=== PATIENT | male | born 1935 | race Caucasian/White ===

== ENCOUNTER → 2017-04-21 | Outpatient (RCR) | payer OTHER | END | disposition home or self-care (01) | LOC: PTY 04-14 09:30 | DX: M25.561 Pain in right knee (principal); M25.562 Pain in left knee; I10 Essential (primary) hypertension | CPT/HCPCS: 97110; 97140; 97162; G0283 ==

== ENCOUNTER → 2017-05-21 | Outpatient (RCR) | payer OTHER | END | disposition home or self-care (01) | LOC: PTY 04-24 08:30 | DX: M25.561 Pain in right knee (principal); M25.562 Pain in left knee | CPT/HCPCS: 97110; 97140; G0283 ==

== ENCOUNTER 2017-06-18 09:15 | Outpatient (RCR) | payer OTHER | END 2017-06-21 | disposition home or self-care (01) | LOC: PTY 09:15 | DX: M25.561 Pain in right knee (principal); M25.562 Pain in left knee | CPT/HCPCS: 97110; 97112; 97140; G0283 ==